=== PATIENT | male | born 1970 | race American Indian/Alaskan Native ===

== ENCOUNTER 2016-05-25 10:36 | Emergency (ER) | payer MEDICAID, OTHER ==
[2016-05-25 10:42] VITALS: BMI 25.1
[2016-05-25 10:45] VITALS: BP 122/75; PULSE 84; RESP 16; TEMP 97.7; O2SAT 98
[2016-05-25] MEDS ORDERED: Oxycodone/Acetaminophen 5/325 mg Tab PO STA (11:14)
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
== END 2016-05-25 13:41 | disposition home or self-care (01) ==
LOC: ED 10:36
DX: M79.672 Pain in left foot (principal); M79.671 Pain in right foot; M25.572 Pain in left ankle and joints of left foot; M25.571 Pain in right ankle and joints of right foot; F17.210 Nicotine dependence, cigarettes, uncomplicated
CPT/HCPCS: 73610; 73630; 96372; 99284; J1885

== ENCOUNTER 2017-04-04 16:32 | Emergency (ER) | payer MEDICAID ==
[2017-04-04 16:33] VITALS: BMI 25.1
--- NOTE | 2017-04-04 17:19 | ED PDOC ---
Arrival/HPI - General Chief Complaint: Cough, Cold, Congestion Time Seen by Provider: 04/04/17 16:37 Historian: Patient - History of Present Illness Narrative History of Present Illness (Text): 04/04/17 17:36 46-year-old male smoker presents today with cough and nasal congestion and body aches since yesterday. Patient denies fevers at home. Patient states he took NyQuil last night without improvement. He is complaining of pain with coughing. He denies abdominal pain. No nausea or vomiting. Denies dizziness or weakness. He is complaining of hot and cold feeling. Denies sick contacts. No other complaints Time/Duration: Other (1 day) Past Medical History - Provider Review Nursing Documentation Reviewed: Yes - Travel History Have you recently traveled outside US w/in the past 3 mons?: No - Infectious Disease Hx of Infectious Diseases: None - Tetanus Immunization Tetanus Immunization: Unknown - Cardiac Hx Cardiac Disorders: No - Pulmonary Hx Respiratory Disorders: No - Neurological Hx Neurological Disorder: No - HEENT Hx HEENT Disorder: No - Renal Hx Renal Disorder: No - Endocrine/Metabolic Hx Endocrine Disorders: No - Hematological/Oncological Hx Blood Disorders: No - Integumentary Hx Dermatological Disorder: No - Musculoskeletal/Rheumatological Hx Musculoskeletal Disorders: No - Gastrointestinal Hx Gastrointestinal Disorders: No - Genitourinary/Gynecological Hx Genitourinary Disorders: No - Psychiatric Hx Psychophysiologic Disorder: No Hx Substance Use: No - Anesthesia Hx Anesthesia: Yes Hx Anesthesia Reactions: No Family/Social History - Physician Review Nursing Documentation Reviewed: Yes Family/Social History: Unknown Family HX Smoking Status: Heavy Smoker > 10 Cigarettes Daily Hx Alcohol Use: No Hx Substance Use: No Allergies/Home Meds Allergies/Adverse Reactions: Allergies No Known Allergies Allergy (Verified 04/04/17 16:38) Review of Systems - Review of Systems Constitutional: absent: Fatigue, Fevers ENT: Sinus Congestion. absent: Sore Throat Respiratory: Cough. absent: SOB, Sputum Cardiovascular: absent: Chest Pain, Palpitations Gastrointestinal: absent: Abdominal Pain, Nausea, Vomiting Genitourinary Male: absent: Dysuria Musculoskeletal: Other (bodyaches). absent: Arthralgias Skin: absent: Rash, Pruritis Neurological: absent: Headache, Dizziness Physical Exam Vital Signs Reviewed: Yes Vital Signs Temp Pulse Resp BP Pulse Ox 04/04/17 17:43 98.9 F 92 H 20 115/80 99 04/04/17 16:39 99.0 F 102 H 21 117/81 97 Temperature: Afebrile Blood Pressure: Normal Pulse: Tachycardic Respiratory Rate: Normal Appearance: Positive for: Well-Appearing, Non-Toxic, Comfortable Pain Distress: None Mental Status: Positive for: Alert and Oriented X 3 - Systems Exam Head: Present: Atraumatic Conjunctiva: Present: Normal Ears: Present: Normal, NORMAL TM Mouth: Present: Moist Mucous Membranes, Normal Lips. No: Drooling, Trismus Pharnyx: Present: Normal. No: ERYTHEMA, EXUDATE, TONSILS ENLARGED, Peritonsilar Swelling, Uvular Deviation Nose (External): Present: Atraumatic Nose (Internal): Present: Normal Inspection Neck: Present: Normal Range of Motion, Trachea Midline. No: Meningeal Signs, Lymphadenopathy Respiratory/Chest: Present: Clear to Auscultation, Good Air Exchange. No: Respiratory Distress, Accessory Muscle Use, Wheezes, Retracting, Rhonchi, Tachypneic Cardiovascular: Present: Regular Rate and Rhythm Abdomen: No: Tenderness, Distention, Rebound, Guarding Upper Extremity: Present: Normal ROM Lower Extremity: Present: Normal ROM Neurological: Present: GCS=15, Speech Normal Skin: Present: Warm, Dry, Normal Color. No: Rashes Psychiatric: Present: Alert, Oriented x 3 Medical Decision Making ED Course and Treatment: 04/04/17 17:46 46yr old male; non toxic well appearing; c/o cough, nasal congestion since yesterday. afebrile. minimally tachycardic. 02 saturation 97-99% cxr;FINDINGS: LUNGS: No active pulmonary disease. PLEURA: No significant pleural effusion identified. No pneumothorax apparent. CARDIOVASCULAR: Normal. OSSEOUS STRUCTURES: No significant abnormalities. VISUALIZED UPPER ABDOMEN: Normal. OTHER FINDINGS: None. IMPRESSION: No active disease. pt with negative flu test; pt with flu like symptoms; will start on tamiflu; case discussed with dr. weiss; will also start patient on zithromax z-pack pt re-evaluation; pt feeling better after medications; vitals remain stable; will d/c home to f/u with PMD. advised increasing fluids and taking medications as prescribed. Advised to return if symptoms worsen persist or if new concerning symptoms develop Patient verbalizes understanding of discharge instructions and need for immediate followup. all aspects of this case were discussed the attending of record. Impression: Cough Motrin every 6 hours as needed for pain/fever reduction Zithromax 1 tablet daily 4 days Tamiflu 1 capsule twice daily 5 days Increase fluids Follow-up with primary care physician within the next 2 days Return immediately if symptoms worsen persist or if new symptoms develop: High fevers, increasing pain, chest pain, shortness of breath, dizziness or weakness or if any other concerning symptoms develop - Lab Interpretations Lab Results: Lab Results 04/04/17 17:00: Influenza Typ A,B (EIA) Negative for flu a/b - RAD Interpretation Radiology Orders: 04/04/17 16:44 CHEST TWO VIEWS (PA/LAT) [RAD] Stat - Medication Orders Current Medication Orders: Discontinued Medications Acetaminophen (Tylenol 325mg Tab) 975 mg PO STAT STA Stop: 04/04/17 17:34 Azithromycin (Zithromax) 500 mg PO STAT STA PRN Reason: Protocol Stop: 04/04/17 17:40 Ketorolac Tromethamine (Toradol) 60 mg IM STAT STA Stop: 04/04/17 17:34 Oseltamivir Phosphate (Tamiflu Cap) 75 mg PO STAT STA PRN Reason: Protocol Stop: 04/04/17 17:41 Disposition/Present on Arrival - Present on Arrival Any Indicators Present on Arrival: No History of DVT/PE: No History of Uncontrolled Diabetes: No Urinary Catheter: No History of Decub. Ulcer: No History Surgical Site Infection Following: None - Disposition Have Diagnosis and Disposition been Completed?: Yes Diagnosis: Cough Disposition Time: 17:51 Patient Plan: Discharge Condition: GOOD Discharge Instructions (ExitCare): Acute Cough (ED) Additional Instructions: Motrin every 6 hours as needed for pain/fever reduction Zithromax 1 tablet daily 4 days Tamiflu 1 capsule twice daily 5 days Increase fluids Follow-up with primary care physician within the next 2 days Return immediately if symptoms worsen persist or if new symptoms develop: High fevers, increasing pain, chest pain, shortness of breath, dizziness or weakness or if any other concerning symptoms develop Prescriptions: Azithromycin [Zithromax] 250 mg PO DAILY #4 tab Ibuprofen [Motrin] 600 mg PO Q6H PRN #20 tab PRN Reason: pain/fever reduction Oseltamivir [Tamiflu] 75 mg PO BID #10 cap Referrals: Novoa,Arsen, PA-C [Primary Care Provider] - Follow up with primary Berlin Ashley DO [Staff Provider] - Follow up with primary [facility] [place] [[place]] - Follow up with primary Forms: [employer] (Tunisian), WORK NOTE
--- NOTE | 2017-04-04 17:23 | RAD ---
HISTORY: cough/fever COMPARISON: No prior. TECHNIQUE: Chest PA and lateral FINDINGS: LUNGS: No active pulmonary disease. PLEURA: No significant pleural effusion identified. No pneumothorax apparent. CARDIOVASCULAR: Normal. OSSEOUS STRUCTURES: No significant abnormalities. VISUALIZED UPPER ABDOMEN: Normal. OTHER FINDINGS: None. IMPRESSION: No active disease.
[2017-04-04 17:44] VITALS: TEMP 98.9; O2SAT 99
[2017-04-04 20:47] VITALS: BP 114/87; PULSE 90; RESP 16
== END 2017-04-04 18:36 | disposition home or self-care (01) ==
LOC: ED 16:32
DX: R05 Cough (principal)
CPT/HCPCS: 71046; 87804; 96372; 99283; J1885

== ENCOUNTER 2017-11-16 17:50 | Emergency (ER) | payer OTHER, MEDICAID ==
[2017-11-16 17:50] VITALS: BMI 25.1
[2017-11-16 18:13] VITALS: TEMP 98.7; O2SAT 99
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
[2017-11-16 19:51] VITALS: BP 129/72; PULSE 81; RESP 18
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
== END 2017-11-16 19:55 | disposition home or self-care (01) ==
LOC: ED 17:50
DX: M54.2 Cervicalgia (principal); M54.5 Low back pain; M25.571 Pain in right ankle and joints of right foot; V49.49XA Driver injured in collision with other motor vehicles in traffic accident, initial encounter; Y92.410 Unspecified street and highway as the place of occurrence of the external cause
CPT/HCPCS: 73610; 96372; 99284; J1885

== ENCOUNTER 2018-05-23 11:30 | Emergency (ER) | payer MEDICAID, OTHER ==
[2018-05-23 11:34] VITALS: RESP 18; TEMP 98.2; BMI 26.4
--- NOTE | 2018-05-23 12:02 | ED PDOC ---
Arrival/HPI - General Chief Complaint: ENT Problem Historian: Patient - History of Present Illness Narrative History of Present Illness (Text): 05/23/18 11:45 47 y/o male, no significant, pmh, nkda, c/o nasal congestion/cough/ear pressure and pain x 2 days with no fall or trauma. Pt. stated that he has nasal congestion, associated with dry cough, associated with ear pressure and pain with no recent traveling or swimming, no change in vision, no night sweat, no dizziness, no change in vision, no diarrhea, neck pain, no other medical or psychological complaints. Past Medical History - Provider Review Nursing Documentation Reviewed: Yes - Infectious Disease Hx of Infectious Diseases: None - Tetanus Immunization Tetanus Immunization: Unknown - Cardiac Hx Cardiac Disorders: No - Pulmonary Hx Respiratory Disorders: No - Neurological Hx Neurological Disorder: No - HEENT Hx HEENT Disorder: No - Renal Hx Renal Disorder: No - Endocrine/Metabolic Hx Endocrine Disorders: No - Hematological/Oncological Hx Blood Disorders: No - Integumentary Hx Dermatological Disorder: No - Musculoskeletal/Rheumatological Hx Musculoskeletal Disorders: No - Gastrointestinal Hx Gastrointestinal Disorders: No - Genitourinary/Gynecological Hx Genitourinary Disorders: No - Psychiatric Hx Psychophysiologic Disorder: No Hx Substance Use: No - Anesthesia Hx Anesthesia: Yes Hx Anesthesia Reactions: No Family/Social History - Physician Review Nursing Documentation Reviewed: Yes Family/Social History: Unknown Family HX Smoking Status: Heavy Smoker > 10 Cigarettes Daily Hx Alcohol Use: No Hx Substance Use: No Allergies/Home Meds Allergies/Adverse Reactions: Allergies No Known Allergies Allergy (Verified 05/23/18 11:40) Review of Systems - Review of Systems Constitutional: absent: Fatigue, Fevers Eyes: absent: Vision Changes ENT: Rhinorrhea, Sinus Congestion, Other (ear pain and pressure). absent: Hearing Changes, Tinnitus, TMJ Pain, Voice Changes, Sore Throat, Epistaxis Respiratory: Cough, Sputum. absent: SOB, Wheezing Cardiovascular: absent: Chest Pain Gastrointestinal: absent: Abdominal Pain, Diarrhea, Nausea, Vomiting Musculoskeletal: absent: Arthralgias, Back Pain Skin: absent: Rash, Pruritis Neurological: absent: Headache, Dizziness Psychiatric: absent: Anxiety Physical Exam Vital Signs Reviewed: Yes Vital Signs Temp Pulse Resp BP Pulse Ox 05/23/18 11:32 98.2 F 92 H 18 120/77 97 Temperature: Afebrile Blood Pressure: Normal Pulse: Regular Respiratory Rate: Normal Appearance: Positive for: Well-Appearing, Non-Toxic, Comfortable Pain Distress: Moderate Mental Status: Positive for: Alert and Oriented X 3 - Systems Exam Head: Present: Atraumatic, Normocephalic, Other (+ttp on the rt. maxillary sinus region with no periorbital cellulitis or swelling. ) Pupils: Present: PERRL Extroacular Muscles: Present: EOMI Conjunctiva: Present: Normal Ears: Present: Other (Ears: Rt. TM erythematous and intact, lt. TM shahid color adn intact, bilateral auditory canals non erythemnatous, no mastoid tenderness. ) Mouth: Present: Moist Mucous Membranes Pharnyx: No: ERYTHEMA, EXUDATE, TONSILS ENLARGED Nose (External): Present: Atraumatic. No: Abrasion, Contusion, Laceration Nose (Internal): Present: Normal Inspection, No Active Bleeding, Rhinorrhea. No: Septal Hematoma, Epistaxis Neck: Present: Normal Range of Motion, Trachea Midline. No: Meningeal Signs, MIDLINE TENDERNESS, Paraspinal Tenderness, Lymphadenopathy Respiratory/Chest: Present: Clear to Auscultation, Good Air Exchange. No: Respiratory Distress, Accessory Muscle Use, Wheezes, Decreased Breath Sounds, Rales, Retracting, Rhonchi, Tachypneic, Tender to Palpation Cardiovascular: Present: Regular Rate and Rhythm, Normal S1, S2. No: Murmurs Abdomen: No: Tenderness, Distention, Peritoneal Signs, Rebound, Guarding Back: Present: Normal Inspection. No: CVA Tenderness, Midline Tenderness, Paraspinal Tenderness, Pain with Leg Raise, Decubitus Ulcer Upper Extremity: Present: Normal Inspection, Normal ROM, Neurovascularly Intact, Capillary Refill < 2s, Norm 2-Pt Discrimination. No: Cyanosis, Edema, Tenderness, Swelling, Deformity Lower Extremity: Present: Normal Inspection, Normal ROM, Neurovascularly Intact, Capillary Refill < 2 s. No: Edema, Tenderness, Swelling, Deformity Neurological: Present: GCS=15, CN II-XII Intact, Speech Normal, Motor Func Grossly Intact, Normal Cerebellar Funct, Gait Normal, Memory Normal Skin: Present: Warm, Dry, Normal Color. No: Rashes Psychiatric: Present: Alert, Oriented x 3, Normal Insight, Normal Concentration Medical Decision Making ED Course and Treatment: 05/23/18 12:09 -Toradol/ceftriazxone/benadryl -observe and reassess 05/23/18 12:45 -pt. feels much better, request to be discharged home as he stated that he is asymptomatic now. -Discharge home with augmentin, claritin d24, motrin, bromfed dm, stay hydrated, bed rest, follow up with your own pmd and ENT within 2 days, return to the ER for any new or worsening signs or symptoms. 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 Disposition/Present on Arrival - Present on Arrival Any Indicators Present on Arrival: No History of DVT/PE: No History of Uncontrolled Diabetes: No Urinary Catheter: No History of Decub. Ulcer: No History Surgical Site Infection Following: None - Disposition Have Diagnosis and Disposition been Completed?: Yes Diagnosis: Otitis media, Sinusitis Disposition: HOME/ ROUTINE Disposition Time: 12:45 Patient Plan: Discharge Condition: IMPROVED Additional Instructions: -Discharge home with augmentin, claritin d24, motrin, bromfed dm, stay hydrated, bed rest, follow up with your own pmd and ENT within 2 days, return to the ER for any new or worsening signs or symptoms. Prescriptions: Amoxicillin/Clavulanate [Augmentin 875 MG-125 MG] 1 tab PO BID #20 tab Brompheniramine/Pseudoephed/Dm [Bromfed Dm Cough 118 ml] 10 ml PO QID PRN #300 ml PRN Reason: Other Ibuprofen [Motrin Tab] 600 mg PO QID #30 tab Loratadine/Pseudoephedrine [Claritin-D 24 Hour Tablet] 1 each PO DAILY #7 tab.er.24h Referrals: Andrez Vicente DO [Staff Provider] - Follow up with primary [facility] at [facility] [Outside] - Follow up with primary Forms: [facility] (Czech), WORK NOTE
[2018-05-23] MEDS ORDERED: cefTRIAXone (Rocephin) 1 gm Inj IM STA (12:03)
[2018-05-23 13:07] VITALS: BP 119/75; PULSE 87; O2SAT 99
== END 2018-05-23 13:06 | disposition home or self-care (01) ==
LOC: ED 11:30
DX: J32.9 Chronic sinusitis, unspecified (principal); H66.90 Otitis media, unspecified, unspecified ear; F17.210 Nicotine dependence, cigarettes, uncomplicated
CPT/HCPCS: 96372; 99282; J0696; J1885

== ENCOUNTER 2018-07-11 18:20 | Emergency (ER) | payer MEDICAID ==
[2018-07-11 19:25] VITALS: BMI 26.9
--- NOTE | 2018-07-11 21:11 | ED PDOC ---
Arrival/HPI - General Chief Complaint: Abnormal Skin Integrity Time Seen by Provider: 07/11/18 20:12 Historian: Patient - History of Present Illness Narrative History of Present Illness (Text): 07/11/18 21:07 A 47 year old male presents to the emergency department complaining of painful bump between buttocks for 2 days. Patient reports pain worsened today. Patient denies any other complaints at this time. Past Medical History - Provider Review Nursing Documentation Reviewed: Yes - Infectious Disease Hx of Infectious Diseases: None - Tetanus Immunization Tetanus Immunization: Unknown - Cardiac Hx Cardiac Disorders: No - Pulmonary Hx Respiratory Disorders: No - Neurological Hx Neurological Disorder: No - HEENT Hx HEENT Disorder: No - Renal Hx Renal Disorder: No - Endocrine/Metabolic Hx Endocrine Disorders: No - Hematological/Oncological Hx Blood Disorders: No - Integumentary Hx Dermatological Disorder: No - Musculoskeletal/Rheumatological Hx Musculoskeletal Disorders: No - Gastrointestinal Hx Gastrointestinal Disorders: No - Genitourinary/Gynecological Hx Genitourinary Disorders: No - Psychiatric Hx Psychophysiologic Disorder: No Hx Substance Use: No - Anesthesia Hx Anesthesia: Yes Hx Anesthesia Reactions: No Family/Social History - Physician Review Nursing Documentation Reviewed: Yes Family/Social History: No Known Family HX Smoking Status: Heavy Smoker > 10 Cigarettes Daily Hx Alcohol Use: No Hx Substance Use: No Allergies/Home Meds Allergies/Adverse Reactions: Allergies No Known Allergies Allergy (Verified 07/11/18 19:25) Review of Systems - Physician Review All systems were reviewed & negative as marked: Yes - Review of Systems Constitutional: absent: Fevers Skin: Abscess (painful abscess between buttocks) Physical Exam Vital Signs Reviewed: Yes Vital Signs Temp Pulse Resp BP Pulse Ox 07/11/18 19:37 105 H 07/11/18 19:33 98.0 F 105 H 20 138/89 98 Temperature: Afebrile Blood Pressure: Normal Pulse: Regular Respiratory Rate: Normal Appearance: Positive for: Well-Appearing, Non-Toxic, Comfortable Pain Distress: None Mental Status: Positive for: Alert and Oriented X 3 - Systems Exam Skin: Present: Abscess (1 cm abscess to gluteal cleft, no overlining cellulitis; abscess actively draining.) Medical Decision Making ED Course and Treatment: 07/11/18 21:10 Impression: 47 year old male with painful abscess between buttocks. Physical exam shows 1 cm abscess to gluteal cleft, no evidence of overlining cellulitis. Plan: -- Drainage -- Reassess and disposition Progress Notes: 07/11/18 21:10 Abscess already actively draining. Pressure applied, expressed a moderate amount of material from abscess and patient tolerated procedure well. 2x2 gauze dressing applied by nurse. No evidence of cellulitis, no need for abx at this time. Patient advised to return to the ED for any new or worsening symptoms. Otherwise follow up with PMD. - Scribe Statement The provider has reviewed the documentation as recorded by the Eva Warner Provider Scribe Attestation: All medical record entries made by the Eva were at my direction and personally dictated by me. I have reviewed the chart and agree that the record accurately reflects my personal performance of the history, physical exam, medical decision making, and the department course for this patient. I have also personally directed, reviewed, and agree with the discharge instructions and disposition. Disposition/Present on Arrival - Present on Arrival Any Indicators Present on Arrival: No History of DVT/PE: No History of Uncontrolled Diabetes: No Urinary Catheter: No History of Decub. Ulcer: No History Surgical Site Infection Following: None - Disposition Have Diagnosis and Disposition been Completed?: Yes Diagnosis: Abscess, gluteal cleft Disposition: HOME/ ROUTINE Disposition Time: 20:33 Condition: STABLE Discharge Instructions (ExitCare): Abscess Incision and Drainage (DC) Additional Instructions: JITENDRA COURTNEY, thank you for letting us take care of you today. Your provider was Marilyn Peter MD and you were treated for BACK PAIN. The emergency medical care you received today was directed at your acute symptoms. If you were prescribed any medication, please fill it and take as directed. It may take several days for your symptoms to resolve. Return to the Emergency Department if your symptoms worsen, do not improve, or if you have any other problems. Please contact your doctor or call one of the physicians/clinics you have been referred to that are listed on the Patient Visit Information form that is included in your discharge packet. Bring any paperwork you were given at discharge with you along with any medications you are taking to your follow up visit. Our treatment cannot replace ongoing medical care by a primary care provider outside of the emergency department. Thank you for allowing the [facility] team to be part of your care today. If you had an X-Ray or CT scan: A Radiologist will review the ED reading if any change in treatment is needed we will contact you. If you had a blood, urine, or wound culture: It will take several days for the results, if any change in treatment is needed we will contact you. If you had an STI test: It will take 48 hours for the results. Please call after 1 week if you have not heard back. Referrals: Larry Farrell, MAURICIO, FREIGHT ROUTER [Primary Care Provider] - Follow up with primary Forms: [employer] (Irish)
[2018-07-11 21:24] VITALS: BP 119/79; PULSE 99; RESP 17; TEMP 99; O2SAT 97
== END 2018-07-11 21:26 | disposition home or self-care (01) ==
LOC: ED 18:20
DX: L02.31 Cutaneous abscess of buttock (principal)